=== PATIENT | female | born 1980 | race Hispanic/Latino ===

== ENCOUNTER 2017-09-26 22:13 | Inpatient (IN) | payer MEDICAID, OTHER ==
[2017-09-26 22:54] LABS: BASO % 0.4 % (0.0-2.0); EOS # 0.1 K/uL (0.0-0.7); EOS % 1.5 % (0.0-4.0); HEMOGLOBIN 13.4 g/dL (11.0-16.0); LYMPH # 1.4 K/uL (1.0-4.3); LYMPH % 27.9 % (20.0-40.0); MEAN CELL VOLUME 88.9 fL (81.0-99.0); MEAN CORPUSCULAR HEMOGLOBIN 30.9 pg (27.0-31.0); MEAN CORPUSCULAR HGB CONC 34.8 g/dL (33.0-37.0); MEAN PLATELET VOLUME 7.9 fL (7.2-11.7); MONO # 0.4 K/uL (0.0-0.8); MONO % 7.5 % (0.0-10.0); NEUT # 3.1 K/uL (1.8-7.0); NEUT % 62.7 % (50.0-75.0); NRBC % 0.1 % (0.0-2.0); RBC 4.35 Mil/uL (3.80-5.20); RED CELL DISTRIBUTION WIDTH 13.5 % (11.5-14.5)
[2017-09-26 23:03] LABS: HCG,QUALITATIVE URINE NEGATIVE (NEGATIVE)
[2017-09-26 23:04] LABS: SQUAMOUS EPITHIAL 34 /hpf (0-5); URINE BILIRUBIN NEGATIVE (NEGATIVE); URINE BLOOD NEGATIVE (NEGATIVE); URINE CLARITY Hazy (Clear); URINE COLOR Yellow (YELLOW); URINE GLUCOSE (UA) NORMAL (Normal); URINE LEUKOCYTE ESTERASE 3+ Leu/uL (Negative); URINE PROTEIN NEGATIVE (NEGATIVE)
[2017-09-26 23:06] LABS: ALB/GLOB RATIO 1.1 (1.0-2.1); ALBUMIN 3.7 g/dL (3.5-5.0); ALT/SGPT 13 U/L (9-52); AST/SGOT 18 U/L (14-36); BLOOD UREA NITROGEN 4 mg/dL (7-17); CALCIUM 8.3 mg/dl (8.6-10.4); GFR AFRICAN-AMERICAN > 60; GFR NON-AFRICAN AMERICAN > 60
[2017-09-26 23:13] LABS: BARBITURATES, UR NEGATIVE (NEGATIVE); PHENCYCLIDINE, UR NEGATIVE (NEGATIVE)
[2017-09-26 23:15] LABS: BENZODIAZEPINES, UR POSITIVE (NEGATIVE); OPIATES, UR POSITIVE (NEGATIVE)
--- NOTE | 2017-09-26 23:44 | C.PDOC ---
History Of Present Illness 37 year old female presents to the emergency room requesting detox from alcohol and heroin. Patient states she last used earlier today. She also complains of left lower tooth pain for the past week. No fever or chills. Time Seen by Provider: 09/26/17 22:36 Chief Complaint (Nursing): Substance Abuse History Per: Patient History/Exam Limitations: no limitations Onset/Duration Of Symptoms: Days Current Symptoms Are (Timing): Still Present Modifying Factor(s): Alcohol, Other (Heroin) Past Medical History Reviewed: Historical Data, Nursing Documentation, Vital Signs Vital Signs: Last Vital Signs Temp 98.2 F 09/27/17 00:08 Pulse 78 09/27/17 00:08 Resp 18 09/27/17 00:08 BP 110/70 09/27/17 00:08 Pulse Ox 98 09/27/17 00:08 - Medical History PMH: No Chronic Diseases Surgical History: No Surg Hx Family History: States: No Known Family Hx - Social History Hx Alcohol Use: Yes Hx Substance Use: Yes - Immunization History Hx Tetanus Toxoid Vaccination: Yes Hx Influenza Vaccination: No Hx Pneumococcal Vaccination: No Review Of Systems Constitutional: Negative for: Fever, Chills ENT: Positive for: Other (left lower dental pain) Gastrointestinal: Negative for: Nausea, Vomiting Psych: Positive for: Other (substance abuse) Physical Exam - Physical Exam Appears: Non-toxic, No Acute Distress Skin: Warm, Dry, No Rash Head: Atraumatic, Normacephalic Eye(s): bilateral: Normal Inspection Oral Mucosa: Moist Teeth: Caries (multiple caries including a large jeffery to left lower molar), No Loose, Other (Very poor dentition) Gingiva: No Swelling, No Abscess Neck: Normal ROM Chest: Symmetrical Cardiovascular: Rhythm Regular, No Murmur Respiratory: Normal Breath Sounds, No Rales, No Rhonchi, No Wheezing Gastrointestinal/Abdominal: Bowel Sounds (active), Soft, No Tenderness, No Guarding Extremity: Bilateral: Atraumatic, Normal Color And Temperature, Normal ROM Neurological/Psych: Oriented x3, Normal Speech ED Course And Treatment - Laboratory Results Result Diagrams: 09/26/17 22:51 09/26/17 22:51 O2 Sat by Pulse Oximetry: 96 (RA) Pulse Ox Interpretation: Normal Medical Decision Making Medical Decision Making: Impression: 37 year old requesting detox Initial Plan: * Urine drug screen * Alcohol serum * CMP * CBC * UA * Motrin PO Labs ordered and reviewed. In my clinical judgment patient is medically cleared and stable for psychiatric admission. PES evaluated patient at bedside. Case discussed with Dr Mesa who accepted patient to detox unit Disposition - Disposition Disposition: HOSPITALIZED Disposition Time: 00:05 Condition: GOOD - POA Present On Arrival: None - Clinical Impression Clinical Impression: Polysubstance dependence - PA / PRODUCT INFO SPECIALIST / Resident Statement MD/DO has reviewed & agrees with the documentation as recorded. - Scribe Statement The provider has reviewed the documentation as recorded by the Scribe (Elvie Coleman) All medical record entries made by the Scribe were at my direction and personally dictated by me. I have reviewed the chart and agree that the record accurately reflects my personal performance of the history, physical exam, medical decision making, and the department course for this patient. I have also personally directed, reviewed, and agree with the discharge instructions and disposition. Decision To Admit - Pt Status Changed To: Hospital Disposition Of: Inpatient - Admit Certification Admit to Inpatient:: After my assessment, the patient will require hospitalization for at least two midnights. This is because of the severity of symptoms shown, intensity of services needed, and/or the medical risk in this patient being treated as an outpatient. - InPatient: Physician Admission Certification: I certify that this patient requires 2 or more midnights of care for the following reason:: patient accepted to detox unit for opioid, cocaine, cannabis use - . Bed Request Type: Detox Admitting Physician: Noelle Mesa Patient Diagnosis: Polysubstance dependence
--- NOTE | 2017-09-27 00:33 | PCM.BM ---
<NettieSharmaine Griffiths - Last Filed: 09/27/17 00:32> Treatment Plan Problems - Problems identified on initial assessmt Ineffective Coping Skills Date Initiated: 09/27/17 Time Initiated: 00:33 Assessment reference: NA Status: Active Treatment assets and liabiliti Patient Assests: ADL independent Patient Liabilities: substance abuse - Milieu Protocol Maintain good personal hygiene: daily Encourage regular showers, daily Remind patient to perform daily oral care, other Assist patient to perform ADL's Maintain personal safety: every shift Educate patient to report safety concerns to staff, every shift Monitor environment for contraband/sharps Medication safety: Monitor for expected outcome, potential side effects: every shift, Assess barriers to learning: every shift, Assess readiness for medication education: every shift <Noelle Mesa - Last Filed: 09/29/17 16:47> - Diagnosis (1) Opioid use disorder, severe, dependence Status: Acute Interventions: 09/29/17 16:47 * Assess 7x/week regarding severity of withdrawal * Educate regarding risks, benefits, side effects and alternatives of medications * Use Motivational Interviewing for abstinence * Use CBT for relapse prevention * Medication management for withdrawal symptoms * Encourage medication assisted treatment * <Mala Gunderson - Last Filed: 10/01/17 11:21> Family Contact Family involvement: Geovanny/SO not involved - Goals for Treatment Patient goals for treatment: Complete detox and apply for short-term rehab. Discharge/Continuing Care - Education Needs Education Needs: Patient Medication, Patient Diagnosis/Disease Process, Patient Coping Skills, Patient Anger Management skills, Patient Placement options, Patient Community resources - Discharge Discharge Criteria: No longer exhibiting s/s of withdrawal, Reduction of target symptoms Discharge to:: Substance Abuse Rehab - Treatment Team Participation Patient/Family/SO Statement: 10/01/17 11:21 "I wanna go to short-term from here..." Discussed with Family/SO: No Was Patient/Family/SO present at Treatment Team Meeting: Yes
[2017-09-27] MEDS ORDERED: Aluminum Hydroxide/Magnesium Hydroxide Susp (30 mL) PO PRN (01:30)
--- NOTE | 2017-09-27 10:32 | PCM.PSYCH ---
Initial Psychiatric Evaluation - Initial Psychiatric Evaluation Type of Admission: Voluntary Legal Status: Capacity Chief Complaint (in patient's own words): " I need help." History of Present Illness and Precipitating Events: This is a 37 year old female, who is unemployed and lives with friends , who came to the ED for detox for heroin and alcohol use. Patient states she is "tired of living like that." Patient states she is an IV heroin user and does 10-30 bags per day. She states she has been using for the past 5-6 years. She also states she consumes alcohol in excess as well. She cannot quantify her drinking but states she drinks beer throughout the day, every day. Patient states she slept okay and was able to eat breakfast. Her only current complaint is body aches. Patient states she last used heroin and consumed alcohol yesterday before going to the ED. Patient was recently at a detox program for alcohol and heroin use at [facility] months ago. Following detox, patient did not attend any inpatient or outpatient programs. Patient states her longest sobriety was 5 years. Patient states she also smokes marijuana and cocaine on occasion. Patient denies any psychiatric hospitalization. Patient denies depression, anxiety, suicidal ideation, paranoia, or hallucinations. Medical history: denies Allergies: denies psych history: denies family history: Father, Alcohol use Disorder Current Medications: Active Medications Generic Name Dose Route Start Last Admin Trade Name Freq PRN Reason Stop Dose Admin Al Hydrox/Mg Hydrox/Simethicone 30 ml 09/27/17 01:30 Maalox 30 Ml PO TID PRN Indigestion / Heartburn Clonidine HCl 0.1 mg 09/27/17 01:30 Catapres PO Q8 PRN COWS Score More or Equal to 5 Hydroxyzine HCl 50 mg 09/27/17 01:28 Atarax PO Q6H PRN Anxiety Ibuprofen 600 mg 09/27/17 01:28 Motrin Tab PO Q6H PRN Pain, moderate (4-7) Loperamide HCl 2 mg 09/27/17 01:30 Imodium PO Q8 PRN Diarrhea Ondansetron HCl 4 mg 09/27/17 01:30 Zofran Tab PO Q8 PRN Nausea/Vomiting Trazodone HCl 100 mg 09/27/17 01:28 Desyrel PO HS PRN Insomnia Past Psychiatric History - Past Psychiatric History Previous Treatment History: None History of ETOH/Drug Use: Opioid Use Disorder Alcohol Use Disorder History of Family Illness: Alcohol Use Disorder, Father Pertinent Medical Hx (Current Medical&Sleep Prob, Allergies): Allergies Allergy/AdvReac Type Severity Reaction Status Date / Time No Known Allergies Allergy Unverified 09/26/17 22:41 No Known Home Med 09/26/17 Review of Systems - Review of Systems All systems: reviewed and no additional remarkable complaints except - Psychiatric Psychiatric: Anxiety, Irritability. absent: Auditory Hallucinations, Depression , Hallucinations, Homicidal Ideation, Paranoia, Suicidal Ideation, Visual Hallucinations, Tactile Hallucinations Mental Status Examination - Personal Presentation Personal Presentation: Looks stated age - Affect Affect: Broad - Motor Activity Motor Activity: Calm - Reliability in Providing Information Reliability in Providing Information: Fair - Speech Speech: Organized - Mood Mood: Neutral - Formal Thought Process Formal Thought Process: No Impairment - Obsessions/Compulsions Obsessions: No Compulsions: No - Cognitive Functions Orientation: Person, Place, Situation, Time Sensorium: Alert Attention/Concentration: Attentive Abstract Thinking: [place] Estimate of Intelligence: Below average - Risk Risk: Withdrawal, Diminished functioning - Strength & Assets Inventory Strength & Assets Inventory: Family support DSM 5 DX - DSM 5 DSM 5 Diagnosis: Opioid Use Disorder, Severe Alcohol Use Disorder, Severe Opioid Withdrawal Cocaine use disorder severe Sed /Hyp use disorder moderate - Recommended/Plan of Treatment Treatment Recommendations and Plan of Treatment: Start Librium PRN Subutex taper when withdrawing Gabapentin for augmentation As needed medications All risks, benefits and alternatives of the meds discussed, and the pt agreed and understood. Attend groups and activities Supportive therapy and psychoeducation MD for abstinence CBT for relapse prevention Encourage MAT Refer to rehab or IOP, and self-help groups Smoking cessation with MD Nicotine patch if needed - Smoking Cessation Smoking Cessation Initiated: No
--- NOTE | 2017-09-28 14:51 | PCM.PYCHPN ---
Psychiatric Progress Note - Psychiatric Progress Note Patient seen today, length of contact: 15 minutes Patient Chief Complaint: "I feel sick." Problems Identified/Issues Discussed: The pt is seen, chart reviewed, case discussed with staff. Patient states she does not feel well. She is experiencing withdrawal symptoms. Support given, CBT and [place] used briefly No new symptoms reported, improving slowly and needs more time No SEs from medications, risks discussed. Medication Change: Yes (detox changes daily) Medical Record Reviewed: Yes Mental Status Examination - Cognitive Function Orientation: Person, Place, Situation, Time Memory: Intact Attention: WNL Concentration: WNL Association: WNL Fund of Knowledge: WNL - Mood Mood: Anxious - Affect Affect: Broad - Speech Speech: Appropriate - Formal Thought Process Formal Thought Process: No Impairment - Suicidal Ideation Suicidal Ideation: No - Homicidal Ideation Homicidal Ideation: No Goal/Treatment Plan - Goal/Treatment Plan Need for Continued Stay: Discharge may exacerbated symptoms Progress Toward Problem(s) and Goals/Treatment Plan: Methadone taper Gabapentin for augmentation As needed medications All risks, benefits and alternatives of the meds discussed, and the pt agreed and understood. Attend groups and activities Supportive therapy and psychoeducation [place] for abstinence CBT for relapse prevention Encourage MAT Refer to rehab or IOP, and self-help group
--- NOTE | 2017-09-29 14:35 | PCM.PYCHPN ---
Psychiatric Progress Note - Psychiatric Progress Note Patient seen today, length of contact: 15 minutes Patient Chief Complaint: I'm feeling little better. I still have pain in my back. Problems Identified/Issues Discussed: Patient seen, chart reviewed, case discussed with the staff. Issues related to illness and treatment were discussed with the patient and staff. Reported compliant with treatment with no adverse affects. Patient reported feeling little better. Complaining about pain in her back. Patient has UTI. Discussed with the patient about ciprofloxacin. Patient understood and agreed, Will start. Aftercare discussed with the patient. At the time of evaluation, patient was awake alert oriented 3, no delusions, no auditory visual hallucinations, no suicidal ideations or homicidal ideations. Medical Problems: UTI Diagnostic Results: Review DSM 5 Symptoms Update: Some improvement with treatment Medication Change: Yes (Started ciprofloxacin 500 mg twice a day for 5 days) Medical Record Reviewed: Yes Mental Status Examination - Cognitive Function Orientation: Person, Place, Situation, Time Memory: Intact Attention: WNL Concentration: WNL Association: WNL Fund of Knowledge: [facility] Decription of patient's judgement and insights: None - Mood Mood: Anxious - Affect Affect: Other (Appropriate) - Speech Speech: Appropriate - Formal Thought Process Formal Thought Process: No Impairment Psychotic Thoughts and Behaviors: None - Suicidal Ideation Suicidal Ideation: No - Homicidal Ideation Homicidal Ideation: No Goal/Treatment Plan - Goal/Treatment Plan Need for Continued Stay: Remain at risks for inpatient hospitalization, Discharge may exacerbated symptoms, Severe functional impairment Progress Toward Problem(s) and Goals/Treatment Plan: Patient education Supportive therapy CBT for relapse prevention [place] for abstinence Will start ciprofloxacin 500 mg twice a day for urinary tract infection Continue rest of the treatment as before. Estimated Date of D/C: 10/02/17 - Smoking Cessation Smoking Cessation Initiated: No
--- NOTE | 2017-09-29 15:48 | RAD ---
Chest x-ray two views History: Rehab. Comparison: None available. Findings: No focal infiltrate or effusion. Bibasilar breast and nipple shadows. Right hilar prominence. Heart size within normal limits. Degenerative changes in the spine. Impression: No focal infiltrate or effusion. Bibasilar breast and nipple shadows. Right hilar prominence.
--- NOTE | 2017-09-30 13:11 | PCM.PYCHPN ---
Psychiatric Progress Note - Psychiatric Progress Note Patient seen today, length of contact: 15 minutes Patient Chief Complaint: I'm feeling better. I still have pain in my back. Problems Identified/Issues Discussed: Patient seen, chart reviewed, case discussed with the staff. Issues related to illness and treatment were discussed with the patient and staff. Reported compliant with treatment with no adverse affects. Patient reported feeling better. Still complaining about pain in her back. Patient is calm and cooperative, good eye contact. Mood reported as good. Affect appropriate. Aftercare discussed with the patient. At the time of evaluation, patient was awake alert oriented 3, no delusions, no auditory visual hallucinations, no suicidal ideations or homicidal ideations. Medical Problems: UTI Diagnostic Results: Review DSM 5 Symptoms Update: Improving with treatment Medication Change: No Medical Record Reviewed: Yes Mental Status Examination - Cognitive Function Orientation: Person, Place, Situation, Time Memory: Intact Attention: WNL Concentration: WNL Association: WN Fund of Knowledge: [facility] Decription of patient's judgement and insights: Fair - Mood Mood: Anxious (Much less than before) - Affect Affect: Other (Appropriate) - Speech Speech: Appropriate - Formal Thought Process Formal Thought Process: No Impairment Psychotic Thoughts and Behaviors: None - Suicidal Ideation Suicidal Ideation: No - Homicidal Ideation Homicidal Ideation: No Goal/Treatment Plan - Goal/Treatment Plan Need for Continued Stay: Remain at risks for inpatient hospitalization, Discharge may exacerbated symptoms, Severe functional impairment Progress Toward Problem(s) and Goals/Treatment Plan: Patient education Supportive therapy CBT for relapse prevention [place] for abstinence Continue treatment as before. Estimated Date of D/C: 10/02/17 - Smoking Cessation Smoking Cessation Initiated: No
--- NOTE | 2017-10-01 13:09 | PCM.PYCHPN ---
Psychiatric Progress Note - Psychiatric Progress Note Patient seen today, length of contact: 16 min Patient Chief Complaint: "I feel better" Problems Identified/Issues Discussed: The pt is seen, chart reviewed, case discussed with staff. Support given, CBT and [place] used briefly No new symptoms reported, improving slowly and needs more time No SEs from medications, risks discussed. After care discussed - wants to leave tomorrow bc of a court on Wed Medication Change: Yes (detox changes daily) Medical Record Reviewed: Yes Mental Status Examination - Cognitive Function Orientation: Person, Place, Situation, Time Memory: Intact Attention: WNL Concentration: WNL Association: WN Fund of Knowledge: [facility] - Mood Mood: Anxious (Much less than before) - Affect Affect: Constricted - Speech Speech: Appropriate - Formal Thought Process Formal Thought Process: No Impairment - Suicidal Ideation Suicidal Ideation: No - Homicidal Ideation Homicidal Ideation: No Goal/Treatment Plan - Goal/Treatment Plan Need for Continued Stay: Remain at risks for inpatient hospitalization, Discharge may exacerbated symptoms, Severe functional impairment Progress Toward Problem(s) and Goals/Treatment Plan: Methadone taper Gabapentin for augmentation As needed medications All risks, benefits and alternatives of the meds discussed, and the pt agreed and understood. Attend groups and activities Supportive therapy and psychoeducation [place] for abstinence CBT for relapse prevention Encourage MAT Refer to rehab or IOP, and self-help group Estimated Date of D/C: 10/02/17
[2017-10-01 17:04] VITALS: RESP 18
--- NOTE | 2017-10-02 08:48 | PCM.PYCHDC ---
Mental Status Examination - Mental Status Examination Orientation: Person, Place, Situation, Time Discharge Summary - Discharge Note Consultations:: List each consultation separately and include: 1. Reason for request. 2. Findings. 3. Follow-up Summary of Hospital Course include:: 1. Description of specific treatment plan utilized for patients during their course of treatmen. 2. Summarize the time- course for resolution of acute symptoms and/or regressed behaviors. 3. Describe issues identified and worked on during hospitalization. 4. Describe medication utilized. 5. Describe medical problems identified and treated. 6. Reassessment of suicide risk Summary of Hospital Course: Waiting list for [facility] - Diagnosis (1) Opioid use disorder, severe, dependence Current Visit: Yes Status: Acute - Final Diagnosis (DSM 5) Condition upon Discharge: GOOD Disposition: HOME/ ROUTINE Follow-up Treatment Plan: Methadone taper Gabapentin for augmentation As needed medications All risks, benefits and alternatives of the meds discussed, and the pt agreed and understood. Attend groups and activities Supportive therapy and psychoeducation [place] for abstinence CBT for relapse prevention Encourage MAT Refer to rehab or IOP, and self-help group Prescriptions/Medication Reconciliation: Ciprofloxacin [Cipro] 500 mg PO BID #8 tab hydrOXYzine HCl [Atarax] 50 mg PO BID PRN #40 tab PRN Reason: Anxiety traZODone [Desyrel] 100 mg PO HS PRN #30 tab PRN Reason: Insomnia
[2017-10-02 09:52] VITALS: BP 108/69; PULSE 64; TEMP 97.7; O2SAT 100
== END 2017-10-02 09:15 | disposition home or self-care (01) | DRG 744 ==
LOC: C.ER 22:13 → C.7D 09-27 00:06
PROVIDERS: ADMIT Psychiatry & Neurology Psychiatry; ATTEND Psychiatry & Neurology Psychiatry
PROC: HZ32ZZZ Individual Counseling for Substance Abuse Treatment, Cognitive-Behavioral (ICD-10-PCS; principal; 2017-09-27)
PROC: HZ36ZZZ Individual Counseling for Substance Abuse Treatment, Psychoeducation (ICD-10-PCS; 2017-09-27)
PROC: HZ37ZZZ Individual Counseling for Substance Abuse Treatment, Motivational Enhancement (ICD-10-PCS; 2017-09-27)
PROC: HZ2ZZZZ Detoxification Services for Substance Abuse Treatment (ICD-10-PCS; 2017-09-27)
DX: F11.23 Opioid dependence with withdrawal (principal); N39.0 Urinary tract infection, site not specified; F10.20 Alcohol dependence, uncomplicated; F12.90 Cannabis use, unspecified, uncomplicated; F14.20 Cocaine dependence, uncomplicated; K08.89 Other specified disorders of teeth and supporting structures